=== PATIENT | female | born 2000 | race African-American/Black ===

== ENCOUNTER 2020-02-24 17:32 | Inpatient (IN) ==
[2020-02-24] MEDS ORDERED: OXYTOCIN/DEXTROSE 5%-WATER 30 UNITS/500 ML BAG IV ONE ×2 (17:58→21:50)
[2020-02-24] MEDS ORDERED: RINGER'S SOLUTION,LACTATED 1,000 ML IV PRN (17:58)
[2020-02-24] MEDS ORDERED: RINGER'S SOLUTION,LACTATED 1,000 ML IV ONE (17:58)
[2020-02-24] MEDS ORDERED: DEXTROSE 5%-LACTATED RINGERS 1,000 ML IV PRN (17:58)
[2020-02-24] MEDS ORDERED: ONDANSETRON 4 MG TAB.RAPDIS PO PRN (17:58)
[2020-02-24] MEDS ORDERED: NALOXONE HCL 1 MG/1 ML SYRG IV PRN (17:59)
[2020-02-24] MEDS ORDERED: BUPIVACAINE HCL/0.9 % NACL/PF 250 ML EP PRN (17:59)
[2020-02-24] MEDS ORDERED: ONDANSETRON HCL/PF 2 MG/ML VIAL IV PRN (17:59)
[2020-02-24] MEDS ORDERED: fentaNYL CITRATE/PF 50 MCG/ML AMPUL IT SCH (18:00)
[2020-02-24 18:29] LABS: Cocaine Ur Negative (NEGATIVE); Urine Barbiturate Negative (NEGATIVE); Urine Benzodiazepines Negative (NEGATIVE); Urine Opiates Negative (NEGATIVE); Urine PCP Negative (NEGATIVE); Urine THC Negative (NEGATIVE)
[2020-02-24 18:42] LABS: Hematocrit 35.2 % (37.0-47.0); Hemoglobin 12.2 gm/dL (12.5-16.0); Mean Cell Volume 89.8 fl (78-100); Mean Corpuscular Hemoglobin 31.1 pg (27-31); Mean Corpuscular Hgb Conc 34.7 g/dl (32-36); Mean Platelet Volume 11.3 fl (8-12.5); Neutrophil # 7.7 K/mm3 (1.3-6.0); Neutrophil % 79.8 % (42-75.0); Platelet Count 161 K/mm3 (150-450); Red Blood Count 3.92 M/mm3 (4.2-5.4); Red Cell Distribution Width 12.6 % (11.5-14.0); White Blood Count 9.7 K/mm3 (4.0-10.5)
[2020-02-24] MEDS ORDERED: LIDOCAINE HCL 50 ML VIAL ONE (19:26)
[2020-02-24] MEDS ORDERED: LIDOCAINE HCL 50 ML VIAL IJ PRN (19:30)
--- NOTE | 2020-02-24 20:28 | ANES ---
Post Anesthesia Discharge - Transfer of Care Transfer of Care handoff given to nurse: Yes - Anesthesia Post Op Note Anesthesia Post Op Note: Care transferred to OB RN
--- NOTE | 2020-02-24 20:28 | ANES ---
Post Anesthesia Assessment - Vital Signs Vitals: Last Vital Signs Temp 36.5 C 02/24/20 18:01 Pulse 98 02/24/20 18:01 Resp 22 H 02/24/20 18:01 BP 136/79 02/24/20 18:01 Pulse Ox 99 02/24/20 18:01 Airway Patency: Normal - Mental Status Level Of Consciousness: Awake - Pain Level Pain Score: 4 - N/V Assessment Nausea/Vomiting Presence: None Dehydration:: No
--- NOTE | 2020-02-24 20:28 | ANES ---
Anesthesia Pre Procedure Eval Vitals/Labs: Last Vital Signs Temp 36.5 C 02/24/20 18:01 Pulse 98 02/24/20 18:01 Resp 22 H 02/24/20 18:01 BP 136/79 02/24/20 18:01 Pulse Ox 99 02/24/20 18:01 HOME MEDICATIONS Vits96/Iron Fum/Folic [ S] 1 tab PO DAILY 02/24/20 [Last Taken Unknown] Allergies/Adverse Reactions: Allergies Allergy/AdvReac Type Severity Reaction Status Date / Time No Known Allergies Allergy Verified 02/24/20 17:57 - Planned Procedure Planned Procedure: labor Medication List Reviewed:: Yes Allergies Verified: Yes Medical History (Last Reviewed 02/24/20 @ 20:27 by Cm Winter CRNA) Bacterial vaginitis Onset Date: 08/21/19 UTI (urinary tract infection) Onset Date: 08/21/19 Body piercing Onset Date: Unknown Hx of migraines Onset Date: Unknown Tattoos Onset Date: Unknown Wears glasses Onset Date: Unknown Depression Onset Date: ~2017 Gall bladder stones Onset Date: Unknown Hemorrhoids Onset Date: Unknown Ulcer Onset Date: Unknown Surgical History (Last Reviewed 02/24/20 @ 20:27 by Cm Winter CRNA) History of cholecystectomy Onset Date: Unknown History of tonsillectomy Onset Date: Unknown [place] teeth extracted Onset Date: Unknown Family History (Last Reviewed 02/24/20 @ 20:27 by Cm Winter CRNA) Mother Alive and well Father Hypertension Heart disease - Family Anesthesia History Family History:: no untoward family reactions to anesthesia - Airway/Neck/Teeth Teeth Condition: intact Neck Exam: full range of motion Mallampatti Score: 2 Thyromental (T-M) distance: > 6 cm Mandibulo Hyoid distance: > 3 cm - Respiratory Respiratory Physical: lungs clear Smoking Status: Never smoker Sleep Apnea currently treated: No Sleep Apnea by current assessment: No - Cardiovascular Tolerate Activity: Good Heart Sounds: S1 & S2, Regular - Gastrointestinal NPO since: 1299 - Anesthesia Assessment and Plan ASA Class: PS, II, E Anesthesia Type Plan: Epidural Planned difficult intubation/equipment available: No
--- NOTE | 2020-02-24 20:32 | ANES ---
Anesthesia Procedure Note Procedure Note: ANESTHESIA PROCEDURE NOTE Date of Procedure: 02/24/2020 Time of procedure: 1949. Performed by: Eric Winter CRNA Insole And Outsole Splitter: None. Preprocedure diagnosis: Active labor. Post procedure diagnosis: Same. Procedure: Insertion of labor epidural. Indications: The patient is a 19 year-old prima para female in active labor requesting labor epidural for pain management. Findings: See below. Details of the procedure: The patient was placed in a sitting position. Back was prepped with DuraPrep. Patient was then draped in a sterile fashion. Lidocaine 1% was infiltrated to the skin and subcutaneous tissues at the level of the L3 4 interspace. Unable to identify epidural space at this level. 1% lidocaine was infiltrated over the L4-5 interspace. The epidural space was identified using a 18-gauge Tuohy needle with [id number] technique. Epidural catheter was inserted without difficulty. Negative test dose was elicited using 5 mL of 1.5% preservative-free lidocaine plus epinephrine 1 200,000. The epidural catheter was then taped and secured in place. EBL: Minimal. Fluids: N/A. Specimen: N/A. Post procedure condition: The patient tolerated the procedure well. No complications were noted. Thank you for this consultation. Good CRNA
--- NOTE | 2020-02-24 21:28 | HP ---
Chief Complaint - Chief Complaint Date of Service: 02/24/20 Time of Service: 21:16 Chief Complaint: contractions, leaking fluid History of Present Illness: 19 yo at 37 1/7 weeks presents to L&D complaining of contractions of increasing frequency and intensity with clear LOF since around 1500 today. This complicated by h/o migraines and recent nose bleed yesterday. Rh positive Rubella immune GBS negative Medical History (Last Reviewed 02/24/20 @ 21:18 by Nelson Bui DO) Bacterial vaginitis Onset Date: 08/21/19 UTI (urinary tract infection) Onset Date: 08/21/19 Body piercing Onset Date: Unknown Hx of migraines Onset Date: Unknown Tattoos Onset Date: Unknown Wears glasses Onset Date: Unknown Depression Onset Date: ~2018 Gall bladder stones Onset Date: Unknown Hemorrhoids Onset Date: Unknown Ulcer Onset Date: Unknown Surgical History: Surgical History (Last Reviewed 02/24/20 @ 21:18 by Nelson Bui DO) History of cholecystectomy Onset Date: Unknown History of tonsillectomy Onset Date: Unknown [place] teeth extracted Onset Date: Unknown Family History: Family History (Last Reviewed 02/24/20 @ 21:18 by Nelson Bui DO) Mother Alive and well Father Hypertension Heart disease Social History: (Last Reviewed 02/24/20 @ 21:18 by Nelson Bui DO) Social History: adopted: No fpc: No Marital status: Single household members: significant other number of children: 0 current occupational status: employed current occupation: [employer] current occupational exposures/hazards: No Highest education level completed: high school graduate Sexually Active: Yes Service: No Tobacco: Smoking Status: Never smoker Alcohol: alcohol intake: never Substance Use: substance use type: does not use Dietary Habits: caffeine: Yes caffeine comment: 1/day Type: carbonated beverages, coffee, tea Exercise: frequency: other Daisy/Evangelical: agree to transfusion: Yes Review Of Systems (GEN) - Review of Systems Generalized/Overall Review: Present: No Symptoms Reported EENTM: Present: No Symptoms Reported Respiratory: Present: No Symptoms Reported Cardiac: Present: No Symptoms Reported Abdominal: Present: Other - contractions Genitourinary: Present: Other - Leaking clear vaginal fluid since 1500 Musculoskeletal: Present: No Symptoms Reported Neurological: Present: No Symptoms Reported Skin: Present: No Symptoms Reported Endocrine: Present: No Symptoms Reported Allergies/Adverse Reactions: Allergies Allergy/AdvReac Type Severity Reaction Status Date / Time No Known Allergies Allergy Verified 02/24/20 17:57 Home Medications: HOME MEDICATIONS Vits96/Iron Fum/Folic [ S] 1 tab PO DAILY 02/24/20 [Last Taken Unknown] Exam - Exam Vital Signs: Vital Signs - Last Taken Temp 36.5 C 02/24/20 18:01 Pulse 98 02/24/20 18:01 Resp 22 H 02/24/20 18:01 BP 136/79 02/24/20 18:01 Pulse Ox 99 02/24/20 18:01 Constitutional: Present: Alert, Oriented x3, Cooperative ENT Exam: Present: hearing grossly normal Neck: Present: non-tender. Absent: thyromegaly Breasts: Present: Exam deferred Respiratory: Present: lungs clear, no respiratory distress Cardiovascular/Chest: Present: regular rate, rhythm, no edema Abdomen: Present: soft, no rebound tenderness, other - gravid /Rectal: Present: Other - Cervix 5/100/-3, CLear fluid Extremity: Present: non-tender, no pedal edema, no calf tenderness Skin Exam: Present: normal color, warm/dry, no cyanosis Neurologic: Present: alert, normal mood/affect, oriented x 3, other - Patellar DTR 3/4, no clonus Appearance: Present: appropriate appearance, appropriate insight Eye contact: Present: cooperative, good eye contact Thoughts: Present: normal thought pattern, normal mood /affect Diagnostic Studies: Abnormal Lab Results 02/24/20 Range/Units 18:35 RBC 3.92 L (4.2-5.4) M/mm3 Hgb 12.2 L (12.5-16.0) gm/dL Hct 35.2 L (37.0-47.0) % MCH 31.1 H (27-31) pg Immature Gran # (Auto) 0.04 H (0.000-0.0310) K/mm3 Neutrophils % 79.8 H (42-75.0) % Lymphocytes % 12.4 L (20-51) % Neutrophils # 7.7 H (1.3-6.0) K/mm3 Lymphocytes # 1.20 L (1.5-3.5) k/mm3 Laboratory Results WBC 9.7 K/mm3 (4.0-10.5) 02/24/20 18:35 RBC 3.92 M/mm3 (4.2-5.4) L 02/24/20 18:35 Hgb 12.2 gm/dL (12.5-16.0) L 02/24/20 18:35 Hct 35.2 % (37.0-47.0) L 02/24/20 18: MCV 89.8 fl (78-100) 02/24/20 18: MCH 31.1 pg (27-31) H 02/24/20 18: MCHC 34.7 g/dl (32-36) 02/24/20 18: RDW 12.6 % (11.5-14.0) 02/24/20 18: Plt Count 161 K/mm3 (150-450) 02/24/20 18: MPV 11.3 fl (8-12.5) 02/24/20 18:35 Immature Gran % (Auto) 0.40 % (0.001-0.429) 02/24/20 18: Immature Gran # (Auto) 0.04 K/mm3 (0.000-0.0310) H 02/24/20 18:35 Neutrophils % 79.8 % (42-75.0) H 02/24/20 18:35 Lymphocytes % 12.4 % (20-51) L 02/24/20 18:35 Monocytes % 7.1 % (0.0-9) 02/24/20 18: Eosinophils % 0.1 % (0.0-3.0) 02/24/20 18: Basophils % 0.2 % (0.0-1.0) 02/24/20 18: Nucleated RBC % 0.0 k/mm3 (0-1) 02/24/20 18: Neutrophils # 7.7 K/mm3 (1.3-6.0) H 02/24/20 18: Lymphocytes # 1.20 k/mm3 (1.5-3.5) L 02/24/20 18: Monocytes # 0.7 k/mm3 (0.0-1.0) 02/24/20 18: Eosinophils # 0.0 k/mm3 (0.0-0.7) 02/24/20 18:35 Absolute Basophils 0.0 k/mm3 (0.0-0.1) 02/24/20 18:35 Urine Opiates Screen Negative (NEGATIVE) 02/24/20 18:10 Barbiturate Screen Negative (NEGATIVE) 02/24/20 18:10 Ur Phencyclidine Scrn Negative (NEGATIVE) 02/24/20 18:10 Urine Amphetamine Negative (NEGATIVE) 02/24/20 18:10 U Benzodiazepines Scrn Negative (NEGATIVE) 02/24/20 18:10 Urine Cocaine Screen Negative (NEGATIVE) 02/24/20 18:10 Urine Marijuana (THC) Negative (NEGATIVE) 02/24/20 18:10 Blood Type O Positive 02/24/20 18:35 Antibody Screen Negative 02/24/20 18:35 Assessment/Plan - Assessment/Plan (1) Labor established Assessment: Admit for routine management of labor. Epidural and PRN. Problem: Acute (2) Spontaneous rupture of membranes Problem: Acute Non Stress Test - Status NST: 02/24/20 Reason for NST: threatened labor Monitor Mode: External Acceleration: Present Decelerations: Variable Variability: Moderate 6-25 bpm Baseline Heart Rate: 120 Activity: reactive Reactive: 15 by 15 - Assessment Assessment & Plan: labor - Plan NST Plan: Admit to L&D
[2020-02-24] MEDS ORDERED: BENZOCAINE/MENTHOL 81 SPRAY CAN TP PRN (21:50)
[2020-02-24] MEDS ORDERED: GLYCERIN/WITCH HAZEL LEAF 40 APPL BOX TP PRN (21:50)
[2020-02-24] MEDS ORDERED: HYDROCORTISONE 30 APPL TUBE TP PRN (21:50)
[2020-02-24] MEDS ORDERED: oxyCODONE HCL/ACETAMINOPHEN 1 TAB TABLET PO PRN (21:50)
[2020-02-24] MEDS ORDERED: IBUPROFEN 800 MG TABLET PO PRN (21:50)
[2020-02-24] MEDS ORDERED: SENNOSIDES 8.6 MG TABLET PO PRN (21:50)
[2020-02-24] MEDS ORDERED: BISACODYL 10 MG SUPP.RECT RC PRN (21:50)
--- NOTE | 2020-02-24 21:52 | OR ---
Operative Report - Dictated Report Narrative: Spontaneous vaginal delivery of vigorously crying viable female at 2140 on 02/24/2020 with Apgars 9 and 10, weighing 2619 g in CHARLES position with tight nuchal cord x1. Cord clamping delayed approximately 1 minute Placenta delivered complete, intact, with three vessel cord Estimated blood loss: Less than 50 ml Anesthesia: Epidural Lacerations: Bilateral periurethral abrasions with no repair needed. History for MU History for Definition: * The number of deliveries resulting in a live the patient experienced prior to current hospitalization * The previous delivery of live twins or any live multiple gestation is considered one live event. *If primagravida or nulliparous is documented select zero for the number of previous live births. Live Events: Live Events: 0
[2020-02-25] MEDS: IBUPROFEN 800 MG TABLET PO PRN ×2 (00:18→17:40)
[2020-02-25] MEDS: DOCUSATE SODIUM 100 MG CAPSULE PO SCH ×2 (10:40→21:12)
--- NOTE | 2020-02-25 12:18 | PN ---
Subjective - Date and Time Seen Date: 02/25/20 Time: 12:15 Objective - Vitals Vitals: Last Vital Signs Temp 36.9 C 02/25/20 07:00 Pulse 66 02/25/20 07:00 Resp 20 02/25/20 07:00 BP 120/59 02/25/20 07:00 Pulse Ox 100 02/25/20 07:00 Patient denies complaints. Lochia wnl abdomen - soft, nontender Uterus -firm, at umbilicus - 1 no calf tenderness Impression: day #1 - s/p spontaneous vaginal delivery. Plan: Continue routine care - Abnormal Lab Findings Abnormal Lab Findings: Abnormal Lab Results 02/24/20 Range/Units 18:35 RBC 3.92 L (4.2-5.4) M/mm3 Hgb 12.2 L (12.5-16.0) gm/dL Hct 35.2 L (37.0-47.0) % MCH 31.1 H (27-31) pg Immature Gran # (Auto) 0.04 H (0.000-0.0310) K/mm3 Neutrophils % 79.8 H (42-75.0) % Lymphocytes % 12.4 L (20-51) % Neutrophils # 7.7 H (1.3-6.0) K/mm3 Lymphocytes # 1.20 L (1.5-3.5) k/mm3 Cauti Physician Documentation - Urinary Catheter Management Urethral ([place]ala) Date of Insertion: 02/24/20 Time of Insertion: 20:40 Assessment/Plan - Problems/Diagnosis (1) Labor established Problem: Acute (2) Spontaneous rupture of membranes Problem: Acute
[2020-02-26 07:00] VITALS: BP 111/56
[2020-02-26] MEDS: DOCUSATE SODIUM 100 MG CAPSULE PO SCH (08:27)
--- NOTE | 2020-02-26 09:14 | PN ---
Subjective - Date and Time Seen Date: 02/26/20 Time: 09:14 Objective - Vitals Vitals: Last Vital Signs Temp 37.3 C 02/26/20 06:41 Pulse 81 02/26/20 06:41 Resp 17 02/26/20 06:41 BP 111/56 02/26/20 06:41 Pulse Ox 100 02/26/20 06:41 Patient denies complaints. Lochia wnl abdomen - soft, nontender Uterus -firm, at umbilicus - 2 no calf tenderness Impression: day #2 - s/p spontaneous vaginal delivery. Plan: Routine discharge instructions Cauti Physician Documentation - Urinary Catheter Management Urethral ([place]) Date of Insertion: 02/24/20 Time of Insertion: 20:40 Assessment/Plan - Problems/Diagnosis (1) Labor established Problem: Acute (2) Spontaneous rupture of membranes Problem: Acute
== END 2020-02-26 13:30 | disposition home or self-care (01) | DRG 807 ==
LOC: OBCLINIC 17:32 → OB 17:50
PROVIDERS: ADMIT Obstetrics & Gynecology; ATTEND Obstetrics & Gynecology
CPT/HCPCS: 36415; 59025; 80307; 85025; 86850